=== PATIENT | female | born 1965 | race Caucasian/White ===

== ENCOUNTER → 2023-12-25 12:40 | Outpatient (REF) | payer OTHER, SELFPAY | LOC: HWWDC 12:40 | PROVIDERS: ATTENDING PHYSICIAN Obstetrics & Gynecology Gynecology; FAMILY PHYSICIAN Internal Medicine | DX: Z12.31 Encounter for screening mammogram for malignant neoplasm of breast (principal) | CPT/HCPCS: 77063; 77067 ==

== ENCOUNTER → 2025-01-24 10:09 | Outpatient (REF) | payer OTHER, SELFPAY | LOC: HWWDC 10:09 | PROVIDERS: ATTENDING PHYSICIAN Obstetrics & Gynecology Gynecology; FAMILY PHYSICIAN Internal Medicine | DX: Z12.31 Encounter for screening mammogram for malignant neoplasm of breast (principal) | CPT/HCPCS: 77063; 77067 ==